=== PATIENT | female | born 1970 | race Two or more races ===

== ENCOUNTER 2019-12-07 10:29 | Day surgery (SDC) | payer OTHER ==
[2019-12-07] MEDS ORDERED: ZITHROMAX TRI-500 MG PO (18:58)
== END 2019-12-07 20:20 | disposition home or self-care (01) ==
LOC: CIR.AMB 10:29 → LAB 10:29 → CIR.AMB 20:20 → LAB 20:20
PROVIDERS: ATTEND Obstetrics & Gynecology
DX: D26.1 Other benign neoplasm of corpus uteri (principal); N72 Inflammatory disease of cervix uteri; Z20.828 Contact with and (suspected) exposure to other viral communicable diseases